=== PATIENT | female | born 1930 | race Caucasian/White ===

== ENCOUNTER 2019-08-16 13:21 | Inpatient (IN) | payer MEDICARE, BC ==
[2019-08-16] MEDS ORDERED: Sodium Chloride 0.9% 500 ML IV ONE (13:50)
--- NOTE | 2019-08-16 15:06 | EDM.PDOC ---
ED HPI GENERAL MEDICAL PROBLEM - General Chief Complaint: Syncope Stated Complaint: FALL Time Seen by Provider: 08/16/19 15:03 Source of Information: Reports: Patient, Family History Limitations: Reports: Altered Mental Status - History of Present Illness INITIAL COMMENTS - FREE TEXT/NARRATIVE: Danielle complains of weakness. She fell in the bat tub,but did not hit her head or lose conspicuousness.On further questioning,She does endorse diarrhea since yesterday.She reports feeling dizzy before falling. She has a h/o afib,recently started on Xarelto. Also has HTN on HCTZ and BB. No chest pain or SOB. No fever. - Related Data Allergies Allergy/AdvReac Type Severity Reaction Status Date / Time codeine Allergy Cannot Verified 10/27/12 15:03 Remember tramadol Allergy Cannot Verified 10/27/12 15:03 Remember Home Meds: Home Meds Acetaminophen [Tylenol Arthritis] 650 mg PO PRN 10/27/12 [History] Alendronate Sodium [Fosamax] 70 mg PO 10/27/12 [History] Calcium Carbonate/Vitamin D3 [Calcium 600 + Vit D 400] BID 10/27/12 [History] Donepezil [Aricept] 10 mg PO BEDTIME 10/27/12 [History] Lisinopril 40 mg PO DAILY 10/27/12 [History] Lomotil 2.5 mg PO QID PRN 10/27/12 [History] Metoprolol Tartrate [Lopressor] 25 mg PO DAILY 10/27/12 [History] Omeprazole [Prilosec] 20 mg PO 10/27/12 [History] Ondansetron [Zofran ODT] 4 mg PO QID PRN 10/27/12 [History] Oxybutynin Chloride [Ditropan Xl] 5 mg PO TID 10/27/12 [History] Aspirin [Halfprin] 81 mg PO DAILY 12/04/12 [History] Past Medical History - Past Health History Medical/Surgical History: Denies Medical/Surgical History - Past Surgical History Other Musculoskeletal Surgeries/Procedures:: R knee replacement Social & Family History - Living Situation & Occupation Living situation: Reports: ED ROS GENERAL - Review of Systems Review Of Systems: Comprehensive ROS is negative, except as noted in HPI. - Physical Exam Exam: See Below Exam Limited By: No Limitations General Appearance: Alert, WD/WN, No Apparent Distress Nose: Normal Inspection Throat/Mouth: Normal Inspection Head Exam: Atraumatic Neck: Normal Inspection Respiratory/Chest: No Respiratory Distress, Lungs Clear Cardiovascular: Normal Peripheral Pulses, Regular Rate, Rhythm GI/Abdominal: Soft Rectal (Female) Exam: Deferred Neuro Exam (Abbreviated): Alert Extremities: Normal Inspection Psychiatric: Normal Affect, Normal Mood Skin Exam: Warm EKG INTERPRETATION EKG Date: 08/16/19 Rhythm: NSR Course - Vital Signs Last Recorded V/S: Last Vital Signs Temp 96.2 F L 08/16/19 13:21 Pulse 66 08/16/19 13:21 Resp 18 08/16/19 13:21 BP 114/101 H 08/16/19 13:21 Pulse Ox 98 08/16/19 13:21 - Orders/Labs/Meds Orders: Active Orders 24 hr Category Date Time Status EKG Documentation Completion [RC] ASDIRECTED Care 08/16/19 13:34 Active C DIFFICILE AG/TOXIN W/REFLEX [RM] Stat Lab 08/16/19 13:35 Ordered OCCULT BLOOD DIAGNOSTIC [OP] Stat Lab 08/16/19 15:02 Ordered EKG 12 Lead [EK] Routine Ther 08/16/19 13:34 Ordered Labs: Laboratory Tests 08/16/19 08/16/19 08/16/19 Range/Units 13:30 13:30 13:30 WBC 5.2 (4.5-12.0) X10-3/uL RBC 2.76 L (3.23-5.20) x10(6)uL Hgb 8.8 L (11.5-15.5) g/dL Hct 27.2 L D (30.0-51.3) % MCV 98.5 H (80-96) fL MCH 32.1 (27.7-33.6) pg MCHC 32.6 (32.2-35.4) g/dL RDW 13.8 (11.5-15.5) % Plt Count 158 (125-369) X10(3)uL MPV 7.5 (7.4-10.4) fL Neut % (Auto) 77.4 (46-82) % Lymph % (Auto) 15.8 (13-37) % [place] % (Auto) 5.8 (4-12) % Eos % (Auto) 0 L (1.0-5.0) % Baso % (Auto) 1 (0-2) % Neut # (Auto) 4.1 (1.6-8.3) # Lymph # (Auto) 0.8 (0.6-5.0) # [place] # (Auto) 0.3 (0.0-1.3) # Eos # (Auto) 0.0 (0.0-0.8) # Baso # (Auto) 0.0 (0.0-0.2) # Sodium 138 (135-145) mmol/L Potassium 3.2 L (3.5-5.3) mmol/L Chloride 103 (100-110) mmol/L Carbon Dioxide 26 (21-32) mmol/L BUN 30 H (7-18) mg/dL Creatinine 1.2 H (0.55-1.02) mg/dL Est Cr Clr Drug Dosing 27.98 mL/min Estimated GFR (MDRD) 42 L (>60) BUN/Creatinine Ratio 25.0 H (9-20) Glucose 159 H (80-116) mg/dL Calcium 8.0 L (8.6-10.2) mg/dL Total Bilirubin 0.8 (0.1-1.3) mg/dL AST 20 (5-25) IU/L ALT 11 L (12-36) U/L Alkaline Phosphatase 101 (56-112) IU/L Troponin I 11.7 (4.0-60.3) pg/mL Total Protein 5.9 L (6.0-8.0) g/dL Albumin 2.6 L (3.2-4.6) g/dL Globulin 3.3 g/dL Albumin/Globulin Ratio 0.8 Departure - Departure Time of Disposition: 16:13 Disposition: Still A Patient 30 Clinical Impression: Vasovagal syncope - Discharge Information Referrals: Wes Andrew MD [Primary Care Provider] - Forms: ED Department Discharge Sepsis Event Note (ED) - Evaluation Sepsis Screening Result: No Definite Risk - Focused Exam Vital Signs: Vital Signs Temp Pulse Resp BP Pulse Ox 08/16/19 13:21 96.2 F L 66 18 114/101 H 98 - Problem List & Annotations (1) Pre-syncope SNOMED Code(s): 557140160 Code(s): R55 - SYNCOPE AND COLLAPSE Status: Acute Current Visit: Yes (2) Dizzy SNOMED Code(s): 037219854, 561728334 Code(s): R42 - DIZZINESS AND GIDDINESS Status: Acute Current Visit: Yes (3) Anemia SNOMED Code(s): 538877054 Code(s): D64.9 - ANEMIA, UNSPECIFIED Status: Acute Current Visit: Yes (4) Afib SNOMED Code(s): 80051612 Code(s): I48.91 - UNSPECIFIED ATRIAL FIBRILLATION Status: Acute Current Visit: Yes Qualifiers: Atrial fibrillation type: paroxysmal Qualified Code(s): I48.0 - Paroxysmal atrial fibrillation (5) Diarrhea SNOMED Code(s): 73874454 Code(s): R19.7 - DIARRHEA, UNSPECIFIED Status: Acute Current Visit: Yes - Problem List Review Problem List Initiated/Reviewed/Updated: Yes - My Orders Last 24 Hours: My Active Orders 08/16/19 13:34 EKG Documentation Completion [RC] ASDIRECTED EKG 12 Lead [EK] Routine 08/16/19 13:35 C DIFFICILE AG/TOXIN W/REFLEX [RM] Stat 08/16/19 15:02 OCCULT BLOOD DIAGNOSTIC [OP] Stat - Assessment/Plan Last 24 Hours: My Active Orders 08/16/19 13:34 EKG Documentation Completion [RC] ASDIRECTED EKG 12 Lead [EK] Routine 08/16/19 13:35 C DIFFICILE AG/TOXIN W/REFLEX [RM] Stat 08/16/19 15:02 OCCULT BLOOD DIAGNOSTIC [OP] Stat Plan: Her orthostatrics are very suggestive. I will admit her.
[2019-08-16] MEDS: Sodium Chloride 0.9% 10 ML Syringe FLUSH PRN ×2 (18:00→23:24)
[2019-08-16] MEDS: Sodium Chloride 0.9% 1,000 ML IV SCH (18:05)
[2019-08-16] MEDS: Sodium Chloride 0.9% 250 ML IV SCH (23:24)
[2019-08-17] MEDS: Sodium Chloride 0.9% 250 ML IV SCH ×2 (02:56→20:38)
--- NOTE | 2019-08-17 06:55 | PCM.HP.2 ---
H&P History of Present Illness - General Date of Service: 08/17/19 Admit Problem/Dx: Admission Diagnosis/Problem Admission Diagnosis/Problem Syncope Source of Information: Patient History Limitations: Reports: No Limitations - History of Present Illness Initial Comments - Free Text/Narative: Danielle was came in yesterday through the ER, and admitted because of syncope, orthostasis, and a GI bleed. She had fallen at home while in the bathroom because of dizziness. She also had bright red blood per rectum. No abdominal pain,fever chills. Recently she was started on Xarelto for atrial fibrillation. - Related Data Allergies/Adverse Reactions: Allergies Allergy/AdvReac Type Severity Reaction Status Date / Time codeine Allergy Nausea Verified 08/16/19 18:32 tramadol Allergy Nausea Verified 08/16/19 18:32 Home Medications: Home Meds Donepezil [Aricept] 10 mg PO BEDTIME 10/27/12 [History] Metoprolol Tartrate [Lopressor] 50 mg PO DAILY 10/27/12 [History] Oxybutynin Chloride [Ditropan Xl] 5 mg PO DAILY 10/27/12 [History] Rivaroxaban [Xarelto] 20 mg PO BEDTIME 08/16/19 [History] hydroCHLOROthiazide [Hydrochlorothiazide] 25 mg PO DAILY 08/16/19 [History] Past Medical History - Past Health History Medical/Surgical History: Denies Medical/Surgical History Cardiovascular History: Reports: Afib, Hypertension Gastrointestinal History: Reports: Diverticulosis, Other (See Below) Other Gastrointestinal History: diverticulitis Genitourinary History: Reports: Urinary Incontinence, UTI, Recurrent Other Genitourinary History: occ dribbling 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/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 History: Musculoskeletal History: Reports: Arthritis, Fracture Other Musculoskeletal History: hx R wrist, R clavicle Neurological History: Reports: Concussion Psychiatric History: Reports: Dementia Other Psychiatric History: early dementia, is forgetful Endocrine/Metabolic History: Reports: Obesity/BMI 30+ - Infectious Disease History Infectious Disease History: Reports: Chicken Pox - Past Surgical History Head Surgeries/Procedures: Reports: None HEENT Surgical History: Reports: Adenoidectomy, Cataract Surgery, Tonsillectomy Other HEENT Surgeries/Procedures: bilat cataract surgery GI Surgical History: Reports: Colon, Colonoscopy Female Surgical History: Reports: Hysterectomy Musculoskeletal Surgical History: Reports: Knee Replacement, Other (See Below) Other Musculoskeletal Surgeries/Procedures:: surgery post arm fracture Social & Family History - Family History Family Medical History: Noncontributory - Tobacco Use Smoking Status *Q: Never Smoker Second Hand Smoke Exposure: No - Caffeine Use Caffeine Use: Reports: Coffee, Soda - Recreational Drug Use Recreational Drug Use: No - Living Situation & Occupation Living situation: Reports: H&P Review of Systems - Review of Systems: Review Of Systems: Comprehensive ROS is negative, except as noted in HPI. Exam - Exam Exam: See Below - Vital Signs Vital Signs: Last Vital Signs Temp 97.9 F 08/17/19 03:04 Pulse 81 08/17/19 03:04 Resp 16 08/17/19 03:04 BP 130/81 08/17/19 03:04 Pulse Ox 99 08/17/19 03:04 Orthostatic Blood Pressure [ 82/68 Sitting] Orthostatic Blood Pressure [ 122/108 Supine] Weight: 75.251 kg - Exam General: Alert, Cooperative. No: Oriented HEENT: PERRLA, Conjunctiva Clear Neck: Supple, Trachea Midline, 2 Lungs: Clear to Auscultation, Normal Respiratory Effort Cardiovascular: Irregular Rhythm GI/Abdominal Exam: Normal Bowel Sounds, Soft, Non-Tender, No Organomegaly, No Distention, No Abnormal Bruit, No Mass, Pelvis Stable (Female) Exam: Deferred Rectal (Female) Exam: Bloody Stool Back Exam: Normal Inspection, Full Range of Motion, NT Extremities: Normal Inspection, Normal Range of Motion, Non-Tender, No Pedal Edema, Normal Capillary Refill Skin: Warm, Dry, Intact Neurological: Cranial Nerves Intact, Reflexes Equal Bilateral Neuro Extensive - Mental Status: Alert, Oriented x3, Normal Mood/Affect, Normal Cognition Neuro Extensive - Motor, Sensory, Reflexes: CN II-XII Intact, Normal Gait, Normal Reflexes Psychiatric: Alert, Normal Affect, Normal Mood - Patient Data Lab Results Last 24 hrs: Laboratory Results - last 24 hr 08/16/19 08/16/19 08/16/19 Range/Units 13:30 13:30 13:30 WBC 5.2 (4.5-12.0) X10-3/uL RBC 2.76 L (3.23-5.20) x10(6)uL Hgb 8.8 L (11.5-15.5) g/dL Hct 27.2 L D (30.0-51.3) % MCV 98.5 H (80-96) fL MCH 32.1 (27.7-33.6) pg MCHC 32.6 (32.2-35.4) g/dL RDW 13.8 (11.5-15.5) % Plt Count 158 (125-369) X10(3)uL MPV 7.5 (7.4-10.4) fL Neut % (Auto) 77.4 (46-82) % Lymph % (Auto) 15.8 (13-37) % [place] % (Auto) 5.8 (4-12) % Eos % (Auto) 0 L (1.0-5.0) % Baso % (Auto) 1 (0-2) % Neut # (Auto) 4.1 (1.6-8.3) # Lymph # (Auto) 0.8 (0.6-5.0) # [place] # (Auto) 0.3 (0.0-1.3) # Eos # (Auto) 0.0 (0.0-0.8) # Baso # (Auto) 0.0 (0.0-0.2) # Sodium 138 (135-145) mmol/L Potassium 3.2 L (3.5-5.3) mmol/L Chloride 103 (100-110) mmol/L Carbon Dioxide 26 (21-32) mmol/L BUN 30 H (7-18) mg/dL Creatinine 1.2 H (0.55-1.02) mg/dL Est Cr Clr Drug Dosing 27.98 mL/min Estimated GFR (MDRD) 42 L (>60) BUN/Creatinine Ratio 25.0 H (9-20) Glucose 159 H (80-116) mg/dL Calcium 8.0 L (8.6-10.2) mg/dL Total Bilirubin 0.8 (0.1-1.3) mg/dL AST 20 (5-25) IU/L ALT 11 L (12-36) U/L Alkaline Phosphatase 101 (56-112) IU/L Troponin I 11.7 (4.0-60.3) pg/mL Total Protein 5.9 L (6.0-8.0) g/dL Albumin 2.6 L (3.2-4.6) g/dL Globulin 3.3 g/dL Albumin/Globulin Ratio 0.8 SARS Virus RNA (PCR) (NEGATIVE) Blood Type Gel Antibody Screen Crossmatch 08/16/19 08/16/19 08/16/19 Range/Units 13:30 16:45 20:40 WBC 7.6 (4.5-12.0) X10-3/uL RBC 2.56 L (3.23-5.20) x10(6)uL Hgb 8.3 L (11.5-15.5) g/dL Hct 25.2 L (30.0-51.3) % MCV 98.4 H (80-96) fL MCH 32.6 (27.7-33.6) pg MCHC 33.1 (32.2-35.4) g/dL RDW 13.8 (11.5-15.5) % Plt Count 155 (125-369) X10(3)uL MPV 7.5 (7.4-10.4) fL Neut % (Auto) 75.3 (46-82) % Lymph % (Auto) 17.8 (13-37) % [place] % (Auto) 6.5 (4-12) % Eos % (Auto) 0 L (1.0-5.0) % Baso % (Auto) 0 (0-2) % Neut # (Auto) 5.7 (1.6-8.3) # Lymph # (Auto) 1.4 (0.6-5.0) # [place] # (Auto) 0.5 (0.0-1.3) # Eos # (Auto) 0.0 (0.0-0.8) # Baso # (Auto) 0.0 (0.0-0.2) # Sodium (135-145) mmol/L Potassium (3.5-5.3) mmol/L Chloride (100-110) mmol/L Carbon Dioxide (21-32) mmol/L BUN (7-18) mg/dL Creatinine (0.55-1.02) mg/dL Est Cr Clr Drug Dosing mL/min Estimated GFR (MDRD) (>60) BUN/Creatinine Ratio (9-20) Glucose (80-116) mg/dL Calcium (8.6-10.2) mg/dL Total Bilirubin (0.1-1.3) mg/dL AST (5-25) IU/L ALT (12-36) U/L Alkaline Phosphatase (56-112) IU/L Troponin I (4.0-60.3) pg/mL Total Protein (6.0-8.0) g/dL Albumin (3.2-4.6) g/dL Globulin g/dL Albumin/Globulin Ratio SARS Virus RNA (PCR) Negative (NEGATIVE) Blood Type A POSITIVE Gel Antibody Screen Negative Crossmatch See Detail Result Diagrams: 08/16/19 20:40 08/16/19 13:30 Johnnie Results Last 24 hrs: Microbiology 08/16/19 18:30 Stool Occult Blood (JOHNNIE) - Final Stool / Feces EKG INTERPRETATION Rhythm: A-Fib Sepsis Event Note - Evaluation Sepsis Screening Result: No Definite Risk - Focused Exam Vital Signs: Vital Signs Temp Temp Pulse Resp BP Pulse Ox 08/17/19 03:04 97.9 F 81 16 130/81 99 08/17/19 02:49 97.8 F 85 14 134/70 99 08/17/19 01:15 97.9 F 89 20 109/63 99 08/16/19 23:40 97.8 F 85 14 104/60 08/16/19 23:25 98 F 98 F 84 20 106/51 L 98 08/16/19 21:25 98.2 F 84 20 109/74 97 08/16/19 20:15 97.9 F 78 18 96/51 L 95 Date Exam was Performed: 08/17/19 Time Exam was Performed: 06:49 - Problem List (1) BRBPR (bright red blood per rectum) SNOMED Code(s): 64725521 ICD Code: K62.5 - HEMORRHAGE OF ANUS AND RECTUM Status: Acute Current Visit: Yes (2) Pre-syncope SNOMED Code(s): 388183695 ICD Code: R55 - SYNCOPE AND COLLAPSE Status: Acute Current Visit: Yes (3) Dizzy SNOMED Code(s): 942920387, 142463975 ICD Code: R42 - DIZZINESS AND GIDDINESS Status: Acute Current Visit: Yes (4) Anemia SNOMED Code(s): 251389043 ICD Code: D64.9 - ANEMIA, UNSPECIFIED Status: Acute Current Visit: Yes (5) Afib SNOMED Code(s): 20457512 ICD Code: I48.91 - UNSPECIFIED ATRIAL FIBRILLATION Status: Acute Current Visit: Yes Qualifiers: Atrial fibrillation type: paroxysmal Qualified Code(s): I48.0 - Paroxysmal atrial fibrillation (6) Diarrhea SNOMED Code(s): 99938199 ICD Code: R19.7 - DIARRHEA, UNSPECIFIED Status: Acute Current Visit: Yes Problem List Initiated/Reviewed/Updated: Yes Orders Last 24hrs: Active Orders 24 hr Category Date Time Status Patient Status [ADT] Routine ADT 08/16/19 16:21 Active EKG Documentation Completion [RC] ASDIRECTED Care 08/16/19 13:34 Active Height and Weight [RC] 06 Care 08/16/19 16:21 Active Intake and Output [RC] 06,14,22 Care 08/16/19 16:22 Active Oxygen Therapy [RC] PRN Care 08/16/19 16:21 Active Telemetry Monitoring [Cardiac Monitoring] [RC] .As Care 08/16/19 17:15 Active Directed Up With Assistance [RC] ASDIRECTED Care 08/16/19 16:21 Active VTE/DVT Education [RC] Per Unit Routine Care 08/16/19 16:21 Active Vital Signs [RC] QSHIFT Care 08/16/19 16:21 Active OT Evaluation and Treatment [CONS] Routine Cons 08/16/19 16:21 Active PT Evaluation and Treatment [CONS] Routine Cons 08/16/19 16:21 Active Regular Diet [DIET] Diet 08/16/19 Breakfast Active CBC WITH AUTO DIFF [HEME] AM Lab 08/17/19 05:11 Ordered COMPREHENSIVE METABOLIC PN,CMP [CHEM] AM Lab 08/17/19 05:11 Ordered Donepezil [Aricept] Med 08/17/19 21:00 Active 10 mg PO BEDTIME Sodium Chloride 0.9% [Normal Saline] 1,000 ml Med 08/16/19 16:30 Active IV ASDIRECTED Sodium Chloride 0.9% [Normal Saline] 250 ml Med 08/16/19 22:00 Active IV ASDIRECTED Sodium Chloride 0.9% [Saline Flush] Med 08/16/19 18:25 Active 10 ml FLUSH ASDIRECTED PRN Transfuse PRBC [Transfuse Red Blood Cells] [COMM] Stat Oth 08/16/19 21:46 Ordered Resuscitation Status Routine Resus Stat 08/16/19 16:21 Ordered EKG 12 Lead [EK] Routine Ther 08/16/19 13:34 Ordered Medication Orders Donepezil HCl (Aricept) 10 mg PO BEDTIME [facility] Sodium Chloride (Normal Saline) 1,000 mls @ 125 mls/hr IV ASDIRECTED FARIHA Last Admin: 08/16/19 18:05 Dose: 125 mls/hr Documented by: SRUTHI Sodium Chloride (Normal Saline) 250 mls @ 100 mls/hr IV ASDIRECTED [facility] Last Admin: 08/17/19 02:56 Dose: 100 mls/hr Documented by: Admin: 08/16/19 23:24 Dose: 100 mls/hr Documented by: ENEDELIA Sodium Chloride (Saline Flush) 10 ml FLUSH ASDIRECTED PRN PRN Reason: Keep Vein Open Last Admin: 08/16/19 23:24 Dose: 10 ml Documented by: Admin: 08/16/19 18:00 Dose: 10 ml Documented by: SRUTHI Assessment/Plan Comment:: Overnight, that he had some bloody stools, hemoglobin dropping to 8.3. Her blood pressure was low and had one episode of passing out. I given 2 units of PRBCs. She feels better this morning. We'll continue with fluid resuscitation and repeat labs tomorrow
[2019-08-17] MEDS ORDERED: Pantoprazole 40 MG Vial IVPUSH ONE (09:17)
[2019-08-17] MEDS: Sodium Chloride 0.9% 1,000 ML IV SCH (09:45)
[2019-08-17] MEDS ORDERED: Potassium Chloride 20 MEQ in Premix Bag 1 BAG IV ONE (10:12)
--- NOTE | 2019-08-17 10:21 | PCM.CONS ---
H&P History of Present Illness - General Date of Service: 08/17/19 Admit Problem/Dx: Admission Diagnosis/Problem Admission Diagnosis/Problem Syncope - History of Present Illness Initial Comments - Free Text/Narative: 88 yo wf who was admitted yesterday after an episode of syncope. She apparently has been having some diarrhea prior to here presentation. During her hospitalization she was noted to have an episode bloody bowel movements. This was repeated last evening and this morning. This am it was erickson blood. The patient did receive two units of blood last pm. She is on Xeralto for recently diagnosed Afib. This was stopped yesterday per the hospitalist. She has a hx of diverticulosis. No c scope report is available. She is also a poor historian. - Related Data Allergies/Adverse Reactions: Allergies Allergy/AdvReac Type Severity Reaction Status Date / Time codeine Allergy Nausea Verified 08/16/19 18:32 tramadol Allergy Nausea Verified 08/16/19 18:32 Home Medications: Home Meds Donepezil [Aricept] 10 mg PO BEDTIME 10/27/12 [History] Metoprolol Tartrate [Lopressor] 50 mg PO DAILY 10/27/12 [History] Oxybutynin Chloride [Ditropan Xl] 5 mg PO DAILY 10/27/12 [History] Rivaroxaban [Xarelto] 20 mg PO BEDTIME 08/16/19 [History] hydroCHLOROthiazide [Hydrochlorothiazide] 25 mg PO DAILY 08/16/19 [History] Past Medical History - Past Health History Medical/Surgical History: Denies Medical/Surgical History Cardiovascular History: Reports: Afib, Hypertension Gastrointestinal History: Reports: Diverticulosis, Other (See Below) Other Gastrointestinal History: diverticulitis Genitourinary History: Reports: Urinary Incontinence, UTI, Recurrent Other Genitourinary History: occ dribbling [employer] History: Reports: Other OB/BYN History: Musculoskeletal History: Reports: Arthritis, Fracture Other Musculoskeletal History: hx R wrist, R clavicle Neurological History: Reports: Concussion Psychiatric History: Reports: Dementia Other Psychiatric History: early dementia, is forgetful Endocrine/Metabolic History: Reports: Obesity/BMI 30+ - Infectious Disease History Infectious Disease History: Reports: Chicken Pox - Past Surgical History Head Surgeries/Procedures: Reports: None HEENT Surgical History: Reports: Adenoidectomy, Cataract Surgery, Tonsillectomy Other HEENT Surgeries/Procedures: bilat cataract surgery GI Surgical History: Reports: Colon, Colonoscopy Female Surgical History: Reports: Hysterectomy Musculoskeletal Surgical History: Reports: Knee Replacement, Other (See Below) Other Musculoskeletal Surgeries/Procedures:: surgery post arm fracture Social & Family History - Family History Family Medical History: Noncontributory - Tobacco Use Smoking Status *Q: Never Smoker Second Hand Smoke Exposure: No - Caffeine Use Caffeine Use: Reports: Coffee, Soda - Recreational Drug Use Recreational Drug Use: No - Living Situation & Occupation Living situation: Reports: H&P Review of Systems - Review of Systems: Review Of Systems: See Below General: Reports: No Symptoms Pulmonary: Reports: No Symptoms Cardiovascular: Reports: No Symptoms Gastrointestinal: Reports: Bloody Stool. Denies: Abdominal Pain Exam - Exam Exam: See Below - Vital Signs Vital Signs: Last Vital Signs Temp 97.1 F 08/17/19 09:13 Pulse 117 H 08/17/19 09:13 Resp 18 08/17/19 09:13 BP 106/68 08/17/19 09:13 Pulse Ox 97 08/17/19 09:13 Orthostatic Blood Pressure [ 82/68 Sitting] Orthostatic Blood Pressure [ 122/108 Supine] Weight: 75.251 kg - Exam General: Alert, Cooperative. No: Mild Distress Lungs: Clear to Auscultation, Normal Respiratory Effort Cardiovascular: Irregular Rhythm GI/Abdominal Exam: Normal Bowel Sounds, Soft, Non-Tender Back Exam: Normal Inspection Skin: Warm, Dry, Intact - Patient Data Lab Results Last 24 hrs: Laboratory Results - last 24 hr 08/16/19 08/16/19 08/16/19 Range/Units 13:30 13:30 13:30 WBC 5.2 (4.5-12.0) X10-3/uL RBC 2.76 L (3.23-5.20) x10(6)uL Hgb 8.8 L (11.5-15.5) g/dL Hct 27.2 L D (30.0-51.3) % MCV 98.5 H (80-96) fL MCH 32.1 (27.7-33.6) pg MCHC 32.6 (32.2-35.4) g/dL RDW 13.8 (11.5-15.5) % Plt Count 158 (125-369) X10(3)uL MPV 7.5 (7.4-10.4) fL Neut % (Auto) 77.4 (46-82) % Lymph % (Auto) 15.8 (13-37) % [place] % (Auto) 5.8 (4-12) % Eos % (Auto) 0 L (1.0-5.0) % Baso % (Auto) 1 (0-2) % Neut # (Auto) 4.1 (1.6-8.3) # Lymph # (Auto) 0.8 (0.6-5.0) # [place] # (Auto) 0.3 (0.0-1.3) # Eos # (Auto) 0.0 (0.0-0.8) # Baso # (Auto) 0.0 (0.0-0.2) # Sodium 138 (135-145) mmol/L Potassium 3.2 L (3.5-5.3) mmol/L Chloride 103 (100-110) mmol/L Carbon Dioxide 26 (21-32) mmol/L BUN 30 H (7-18) mg/dL Creatinine 1.2 H (0.55-1.02) mg/dL Est Cr Clr Drug Dosing 27.98 mL/min Estimated GFR (MDRD) 42 L (>60) BUN/Creatinine Ratio 25.0 H (9-20) Glucose 159 H (80-116) mg/dL Calcium 8.0 L (8.6-10.2) mg/dL Total Bilirubin 0.8 (0.1-1.3) mg/dL AST 20 (5-25) IU/L ALT 11 L (12-36) U/L Alkaline Phosphatase 101 (56-112) IU/L Troponin I 11.7 (4.0-60.3) pg/mL Total Protein 5.9 L (6.0-8.0) g/dL Albumin 2.6 L (3.2-4.6) g/dL Globulin 3.3 g/dL Albumin/Globulin Ratio 0.8 SARS Virus RNA (PCR) (NEGATIVE) Blood Type Gel Antibody Screen Crossmatch 08/16/19 08/16/19 08/16/19 Range/Units 13:30 16:45 20:40 WBC 7.6 (4.5-12.0) X10-3/uL RBC 2.56 L (3.23-5.20) x10(6)uL Hgb 8.3 L (11.5-15.5) g/dL Hct 25.2 L (30.0-51.3) % MCV 98.4 H (80-96) fL MCH 32.6 (27.7-33.6) pg MCHC 33.1 (32.2-35.4) g/dL RDW 13.8 (11.5-15.5) % Plt Count 155 (125-369) X10(3)uL MPV 7.5 (7.4-10.4) fL Neut % (Auto) 75.3 (46-82) % Lymph % (Auto) 17.8 (13-37) % [place] % (Auto) 6.5 (4-12) % Eos % (Auto) 0 L (1.0-5.0) % Baso % (Auto) 0 (0-2) % Neut # (Auto) 5.7 (1.6-8.3) # Lymph # (Auto) 1.4 (0.6-5.0) # [place] # (Auto) 0.5 (0.0-1.3) # Eos # (Auto) 0.0 (0.0-0.8) # Baso # (Auto) 0.0 (0.0-0.2) # Sodium (135-145) mmol/L Potassium (3.5-5.3) mmol/L Chloride (100-110) mmol/L Carbon Dioxide (21-32) mmol/L BUN (7-18) mg/dL Creatinine (0.55-1.02) mg/dL Est Cr Clr Drug Dosing mL/min Estimated GFR (MDRD) (>60) BUN/Creatinine Ratio (9-20) Glucose (80-116) mg/dL Calcium (8.6-10.2) mg/dL Total Bilirubin (0.1-1.3) mg/dL AST (5-25) IU/L ALT (12-36) U/L Alkaline Phosphatase (56-112) IU/L Troponin I (4.0-60.3) pg/mL Total Protein (6.0-8.0) g/dL Albumin (3.2-4.6) g/dL Globulin g/dL Albumin/Globulin Ratio SARS Virus RNA (PCR) Negative (NEGATIVE) Blood Type A POSITIVE Gel Antibody Screen Negative Crossmatch See Detail 08/17/19 08/17/19 Range/Units 06:15 06:15 WBC 6.4 (4.5-12.0) X10-3/uL RBC 3.10 L (3.23-5.20) x10(6)uL Hgb 9.6 L (11.5-15.5) g/dL Hct 28.9 L (30.0-51.3) % MCV 93.2 (80-96) fL MCH 30.8 (27.7-33.6) pg MCHC 33.1 (32.2-35.4) g/dL RDW 16.1 H (11.5-15.5) % Plt Count 122 L (125-369) X10(3)uL MPV 7.7 (7.4-10.4) fL Neut % (Auto) 61.9 (46-82) % Lymph % (Auto) 28.6 (13-37) % [place] % (Auto) 8.4 (4-12) % Eos % (Auto) 1 (1.0-5.0) % Baso % (Auto) 1 (0-2) % Neut # (Auto) 4.1 (1.6-8.3) # Lymph # (Auto) 1.8 (0.6-5.0) # [place] # (Auto) 0.5 (0.0-1.3) # Eos # (Auto) 0.0 (0.0-0.8) # Baso # (Auto) 0.0 (0.0-0.2) # Sodium 140 (135-145) mmol/L Potassium 3.1 L (3.5-5.3) mmol/L Chloride 107 (100-110) mmol/L Carbon Dioxide 27 (21-32) mmol/L BUN 24 H (7-18) mg/dL Creatinine 0.9 (0.55-1.02) mg/dL Est Cr Clr Drug Dosing 37.31 mL/min Estimated GFR (MDRD) 59 L (>60) BUN/Creatinine Ratio 26.7 H (9-20) Glucose 108 (80-116) mg/dL Calcium 7.5 L (8.6-10.2) mg/dL Total Bilirubin 0.9 (0.1-1.3) mg/dL AST 17 D (5-25) IU/L ALT 12 (12-36) U/L Alkaline Phosphatase 83 (56-112) IU/L Troponin I (4.0-60.3) pg/mL Total Protein 5.1 L (6.0-8.0) g/dL Albumin 2.3 L (3.2-4.6) g/dL Globulin 2.8 g/dL Albumin/Globulin Ratio 0.8 SARS Virus RNA (PCR) (NEGATIVE) Blood Type Gel Antibody Screen Crossmatch Result Diagrams: 08/17/19 06:15 08/17/19 06:15 Johnnie Results Last 24 hrs: Microbiology 08/16/19 18:30 Stool Occult Blood (JOHNNIE) - Final Stool / Feces Sepsis Event Note - Evaluation Sepsis Screening Result: No Definite Risk - Focused Exam Vital Signs: Vital Signs Temp Temp Pulse Resp BP Pulse Ox 08/17/19 09:13 97.1 F 117 H 18 106/68 97 08/17/19 08:00 98.1 F 94 16 129/73 98 08/17/19 05:15 98.2 F 75 16 125/55 L 99 08/17/19 03:04 97.9 F 81 16 130/81 99 08/17/19 02:49 97.8 F 85 14 134/70 99 08/17/19 01:15 97.9 F 89 20 109/63 99 08/16/19 23:40 97.8 F 85 14 104/60 08/16/19 23:25 98 F 98 F 84 20 106/51 L 98 Date Exam was Performed: 08/17/19 Time Exam was Performed: 10:15 *Q Meaningful Use (ADM) - VTE *Q VTE Pharmacological Contraindications *Q: Active Hemorrhage Consult PN Assessment/Plan Procedures: Procedures APPLY FOREARM SPLINT (11/01/14) COMPLETE CBC W/AUTO DIFF WBC (10/27/12) EMERGENCY DEPT VISIT (11/01/14) EMERGENCY DEPT VISIT (10/27/12) METABOLIC PANEL TOTAL CA (10/27/12) ROUTINE VENIPUNCTURE (10/27/12) THER/PROPH/DIAG INJ IV PUSH (10/27/12) X-RAY EXAM COMPLETE ABDOMEN (10/27/12) X-RAY EXAM OF WRIST (11/01/14) XCAPSL CTRC RMVL W/O ECP (12/04/12) (1) Hypokalemia SNOMED Code(s): 91829927 Code(s): E87.6 - HYPOKALEMIA Current Visit: Yes (2) BRBPR (bright red blood per rectum) SNOMED Code(s): 39357486 Code(s): K62.5 - HEMORRHAGE OF ANUS AND RECTUM Current Visit: Yes Assessment:: At this point it appears that this may be a diverticular bleed, which has been exacerbated by Xeralto use for her afib. (3) History of diverticulosis SNOMED Code(s): 011878142 Code(s): Z87.19 - PERSONAL HISTORY OF OTHER DISEASES OF THE DIGESTIVE SYSTEM Current Visit: Yes Problem List Initiated/Reviewed/Updated: Yes My Orders Last 24 Hours: My Active Orders 08/17/19 10:10 INR,PT,PROTHROMBIN TIME [COAG] Routine Plan: Do not believe she needs to be reversed at this time, but can be watched and supported. Transfused as necessary. If we do not have the reversal agent available and the bleeding persists will need to consider transfer. Would check a PT INR just for completeness. Would change to DN1/2 NS with KCl and give a bolus.
[2019-08-17] MEDS: D5 1/2 NS w/ 20 mEq/L KCl 1,000 ML IV SCH (10:51)
[2019-08-17] MEDS ORDERED: Levofloxacin/Dextrose 5%-Water 500 MG in Premix Bag 1 BAG IV SCH (18:00)
[2019-08-17] MEDS ORDERED: Diltiazem IR 60 MG Tab PO ONE (19:23)
[2019-08-17] MEDS ORDERED: Diltiazem IR 30 MG Tab PO ONE (20:30)
[2019-08-17] MEDS: Sodium Chloride 0.9% 10 ML Syringe FLUSH PRN (20:38)
[2019-08-17] MEDS: Donepezil 10 MG Tab PO SCH (20:48)
[2019-08-18] MEDS: D5 1/2 NS w/ 20 mEq/L KCl 1,000 ML IV SCH ×3 (00:35→17:45)
[2019-08-18] MEDS ORDERED: Sodium Chloride 0.9% 250 ML IV SCH (08:45)
[2019-08-18] MEDS ORDERED: Polyethylene Glycol 3350 Powder 238 GM Bot PO ONE (08:48)
--- NOTE | 2019-08-18 08:55 | PCM.CONSN ---
- General Info Date of Service: 08/18/19 Functional Status: Reports: Other (continued to pass some blood ) - Patient Data Vitals - Most Recent: Last Vital Signs Temp 98.1 F 08/17/19 23:00 Pulse 84 08/18/19 03:00 Resp 20 08/18/19 03:00 BP 109/66 08/18/19 03:00 Pulse Ox 97 08/18/19 03:00 Orthostatic Blood Pressure [ 82/68 Sitting] Orthostatic Blood Pressure [ 122/108 Supine] Weight - Most Recent: 75.886 kg I&O - Last 24 Hours: Intake & Output 08/17/19 08/18/19 08/18/19 22:59 06:59 14:59 Intake Total 0 919 Output Total 1200 200 Balance -1200 719 Lab Results Last 24 Hours: Laboratory Results - last 24 hr 08/16/19 08/17/19 08/17/19 Range/Units 13:30 12:10 12:10 WBC 8.4 (4.5-12.0) X10-3/uL RBC 3.07 L (3.23-5.20) x10(6)uL Hgb 9.4 L (11.5-15.5) g/dL Hct 29.1 L (30.0-51.3) % MCV 94.9 (80-96) fL MCH 30.7 (27.7-33.6) pg MCHC 32.3 (32.2-35.4) g/dL RDW 16.6 H (11.5-15.5) % Plt Count 135 (125-369) X10(3)uL MPV 7.5 (7.4-10.4) fL Neut % (Auto) 69.2 (46-82) % Lymph % (Auto) 22.6 (13-37) % [place] % (Auto) 7.3 (4-12) % Eos % (Auto) 0 L (1.0-5.0) % Baso % (Auto) 1 (0-2) % Neut # (Auto) 5.8 (1.6-8.3) # Lymph # (Auto) 1.9 (0.6-5.0) # [place] # (Auto) 0.6 (0.0-1.3) # Eos # (Auto) 0.0 (0.0-0.8) # Baso # (Auto) 0.1 (0.0-0.2) # PT 13.7 H (9.0-11.1) sec INR 1.29 H (1.00-1.24) Sodium (135-145) mmol/L Potassium (3.5-5.3) mmol/L Chloride (100-110) mmol/L Carbon Dioxide (21-32) mmol/L BUN (7-18) mg/dL Creatinine (0.55-1.02) mg/dL Est Cr Clr Drug Dosing mL/min Estimated GFR (MDRD) (>60) BUN/Creatinine Ratio (9-20) Glucose (80-116) mg/dL Calcium (8.6-10.2) mg/dL Urine Color (YELLOW) Urine Appearance (CLEAR) Urine pH (5.0-6.5) Ur Specific [place] (1.010-1.025) Urine Protein (NEGATIVE) mg/dL Urine Glucose (UA) (NORMAL) mg/dL Urine Ketones (NEGATIVE) mg/dL Urine Occult Blood (NEGATIVE) Urine Nitrite (NEGATIVE) Urine Bilirubin (NEGATIVE) Urine Urobilinogen (NEGATIVE) mg/dL Ur Leukocyte Esterase (NEGATIVE) Urine RBC (0-5) Urine WBC (0-5) Ur Squamous Epith Cells (NS,R,O) Urine Bacteria (NS) Blood Type A POSITIVE Gel Antibody Screen Negative Crossmatch See Detail 08/17/19 08/18/19 08/18/19 Range/Units 17:25 06:15 06:15 WBC 8.3 (4.5-12.0) X10-3/uL RBC 3.02 L (3.23-5.20) x10(6)uL Hgb 9.2 L (11.5-15.5) g/dL Hct 28.3 L (30.0-51.3) % MCV 93.9 (80-96) fL MCH 30.4 (27.7-33.6) pg MCHC 32.4 (32.2-35.4) g/dL RDW 15.2 (11.5-15.5) % Plt Count 124 L (125-369) X10(3)uL MPV 7.5 (7.4-10.4) fL Neut % (Auto) 71.6 (46-82) % Lymph % (Auto) 19.5 (13-37) % [place] % (Auto) 8.0 (4-12) % Eos % (Auto) 1 (1.0-5.0) % Baso % (Auto) 0 (0-2) % Neut # (Auto) 6.0 (1.6-8.3) # Lymph # (Auto) 1.6 (0.6-5.0) # [place] # (Auto) 0.7 (0.0-1.3) # Eos # (Auto) 0.0 (0.0-0.8) # Baso # (Auto) 0.0 (0.0-0.2) # PT (9.0-11.1) sec INR (1.00-1.24) Sodium 139 (135-145) mmol/L Potassium 3.8 (3.5-5.3) mmol/L Chloride 107 (100-110) mmol/L Carbon Dioxide 24 (21-32) mmol/L BUN 21 H (7-18) mg/dL Creatinine 0.9 (0.55-1.02) mg/dL Est Cr Clr Drug Dosing 37.31 mL/min Estimated GFR (MDRD) 59 L (>60) BUN/Creatinine Ratio 23.3 H (9-20) Glucose 162 H (80-116) mg/dL Calcium 7.3 L (8.6-10.2) mg/dL Urine Color Yellow (YELLOW) Urine Appearance Cloudy (CLEAR) Urine pH 7.0 H (5.0-6.5) Ur Specific [place] 1.005 L (1.010-1.025) Urine Protein 30 H (NEGATIVE) mg/dL Urine Glucose (UA) Normal (NORMAL) mg/dL Urine Ketones Negative (NEGATIVE) mg/dL Urine Occult Blood Large H (NEGATIVE) Urine Nitrite Negative (NEGATIVE) Urine Bilirubin Negative (NEGATIVE) Urine Urobilinogen Normal (NEGATIVE) mg/dL Ur Leukocyte Esterase Large H (NEGATIVE) Urine RBC >100 H (0-5) Urine WBC >100 H (0-5) Ur Squamous Epith Cells Few H (NS,R,O) Urine Bacteria Many H (NS) Blood Type Gel Antibody Screen Crossmatch Med Orders - Current: Current Medications Donepezil HCl (Aricept) 10 mg PO BEDTIME [facility] Last Admin: 08/17/19 20:48 Dose: 10 mg Documented by: Sodium Chloride (Normal Saline) 250 mls @ 100 mls/hr IV ASDIRECTED [facility] Last Admin: 08/17/19 20:38 Dose: 100 mls/hr Documented by: Potassium Chloride/Dextrose/Sod Cl (D5 1/2 Ns W/ 20 Meq/L Kcl) 1,000 mls @ 125 mls/hr IV ASDIRECTED [facility] Last Admin: 08/18/19 00:35 Dose: 125 mls/hr Documented by: Levofloxacin/Dextrose 500 mg/ (Premix) 100 mls @ 100 mls/hr IV Q24H [facility] Last Admin: 08/17/19 18:07 Dose: 100 mls/hr Documented by: Sodium Chloride (Saline Flush) 10 ml FLUSH ASDIRECTED PRN PRN Reason: Keep Vein Open Last Admin: 08/17/19 20:38 Dose: 10 ml Documented by: Discontinued Medications Diltiazem HCl (Cardizem) 120 mg PO ONETIME ONE Stop: 08/17/19 19:24 Last Admin: 08/17/19 20:48 Dose: Not Given Documented by: Diltiazem HCl (Cardizem) 120 mg PO ONETIME ONE Stop: 08/17/19 20:31 Last Admin: 08/17/19 20:49 Dose: 120 mg Documented by: Sodium Chloride (Normal Saline) 1,000 mls @ 125 mls/hr IV ASDIRECTED [facility] Last Admin: 08/17/19 09:45 Dose: 125 mls/hr Documented by: Sodium Chloride (Normal Saline) 500 mls @ 999 mls/hr IV .BOLUS ONE Stop: 08/16/19 14:20 Last Admin: 08/16/19 13:50 Dose: 999 mls/hr Documented by: Potassium Chloride 20 meq/ (Premix) 100 mls @ 50 mls/hr IV ONETIME ONE Stop: 08/17/19 12:11 Last Admin: 08/17/19 10:46 Dose: 50 mls/hr Documented by: Pantoprazole Sodium (Protonix Iv) 40 mg IVPUSH ONETIME ONE Stop: 08/17/19 09:18 Last Admin: 08/17/19 09:43 Dose: 40 mg Documented by: - Exam General: Alert, Oriented Lungs: Clear to Auscultation, Normal Respiratory Effort Cardiovascular: Regular Rate, Regular Rhythm GI/Abdominal Exam: Normal Bowel Sounds, Soft, Non-Tender Sepsis Event Note - Evaluation Sepsis Screening Result: No Definite Risk - Focused Exam Vital Signs: Vital Signs Temp Temp Pulse Resp BP Pulse Ox 08/18/19 03:00 84 20 109/66 97 08/17/19 23:00 98.1 F 98.1 F 94 20 111/59 L 99 08/17/19 20:55 98.2 F 108 H 20 121/75 99 Date Exam was Performed: 08/18/19 Time Exam was Performed: 08:51 Consult PN Assessment/Plan Procedures: Procedures APPLY FOREARM SPLINT (11/01/14) COMPLETE CBC W/AUTO DIFF WBC (10/27/12) EMERGENCY DEPT VISIT (11/01/14) EMERGENCY DEPT VISIT (10/27/12) METABOLIC PANEL TOTAL CA (10/27/12) ROUTINE VENIPUNCTURE (10/27/12) THER/PROPH/DIAG INJ IV PUSH (10/27/12) X-RAY EXAM COMPLETE ABDOMEN (10/27/12) X-RAY EXAM OF WRIST (11/01/14) XCAPSL CTRC RMVL W/O ECP (12/04/12) (1) Hypokalemia SNOMED Code(s): 66915209 Code(s): E87.6 - HYPOKALEMIA Current Visit: Yes (2) BRBPR (bright red blood per rectum) SNOMED Code(s): 07362261 Code(s): K62.5 - HEMORRHAGE OF ANUS AND RECTUM Current Visit: Yes (3) History of diverticulosis SNOMED Code(s): 401965738 Code(s): Z87.19 - PERSONAL HISTORY OF OTHER DISEASES OF THE DIGESTIVE SYSTEM Current Visit: Yes Problem List Initiated/Reviewed/Updated: Yes My Orders Last 24 Hours: My Active Orders 08/17/19 10:15 D5 1/2 NS w/ 20 mEq/L KCl 1,000 ml IV ASDIRECTED 08/18/19 08:45 FRESH FROZEN PLASMA [BBK] Routine Sodium Chloride 0.9% [Normal Saline] 250 ml IV ASDIRECTED Transfuse Fresh Frozen Plasma [COMM] Routine 08/18/19 08:48 polyethylene glycoL 3350 [MiraLAX] 238 gm PO ONETIME ONE 08/18/19 08:49 Verify Patient Consent Obtain [RC] ASDIRECTED 08/18/19 Lunch Clear Liquid Diet [DIET] NPO After Midnight [Nothing per Oral After Midnight Diet] [DIET] Plan: will transfuse some ffp today. c scope in am. bowel prep clear liquid diet.
--- NOTE | 2019-08-18 09:25 | PCM.PN ---
- General Info Date of Service: 08/18/19 Subjective Update: Had a large bloody stool yesterday. Functional Status: Reports: Pain Controlled - Review of Systems HEENT: Reports: No Symptoms Pulmonary: Reports: No Symptoms Cardiovascular: Reports: No Symptoms Gastrointestinal: Reports: Hematochezia. Denies: Abdominal Pain Genitourinary: Reports: No Symptoms Musculoskeletal: Reports: No Symptoms - Patient Data Vitals - Most Recent: Last Vital Signs Temp 98.1 F 08/17/19 23:00 Pulse 84 08/18/19 03:00 Resp 20 08/18/19 03:00 BP 109/66 08/18/19 03:00 Pulse Ox 97 08/18/19 03:00 Orthostatic Blood Pressure [ 82/68 Sitting] Orthostatic Blood Pressure [ 122/108 Supine] Weight - Most Recent: 75.886 kg I&O - Last 24 Hours: Intake & Output 08/17/19 08/18/19 08/18/19 22:59 06:59 14:59 Intake Total 0 919 Output Total 1200 200 Balance -1200 719 Lab Results Last 24 Hours: Laboratory Results - last 24 hr 08/16/19 08/17/19 08/17/19 Range/Units 13:30 12:10 12:10 WBC 8.4 (4.5-12.0) X10-3/uL RBC 3.07 L (3.23-5.20) x10(6)uL Hgb 9.4 L (11.5-15.5) g/dL Hct 29.1 L (30.0-51.3) % MCV 94.9 (80-96) fL MCH 30.7 (27.7-33.6) pg MCHC 32.3 (32.2-35.4) g/dL RDW 16.6 H (11.5-15.5) % Plt Count 135 (125-369) X10(3)uL MPV 7.5 (7.4-10.4) fL Neut % (Auto) 69.2 (46-82) % Lymph % (Auto) 22.6 (13-37) % Dyer % (Auto) 7.3 (4-12) % Eos % (Auto) 0 L (1.0-5.0) % Baso % (Auto) 1 (0-2) % Neut # (Auto) 5.8 (1.6-8.3) # Lymph # (Auto) 1.9 (0.6-5.0) # Dyer # (Auto) 0.6 (0.0-1.3) # Eos # (Auto) 0.0 (0.0-0.8) # Baso # (Auto) 0.1 (0.0-0.2) # PT 13.7 H (9.0-11.1) sec INR 1.29 H (1.00-1.24) Sodium (135-145) mmol/L Potassium (3.5-5.3) mmol/L Chloride (100-110) mmol/L Carbon Dioxide (21-32) mmol/L BUN (7-18) mg/dL Creatinine (0.55-1.02) mg/dL Est Cr Clr Drug Dosing mL/min Estimated GFR (MDRD) (>60) BUN/Creatinine Ratio (9-20) Glucose (80-116) mg/dL Calcium (8.6-10.2) mg/dL Urine Color (YELLOW) Urine Appearance (CLEAR) Urine pH (5.0-6.5) Ur Specific Sawyer (1.010-1.025) Urine Protein (NEGATIVE) mg/dL Urine Glucose (UA) (NORMAL) mg/dL Urine Ketones (NEGATIVE) mg/dL Urine Occult Blood (NEGATIVE) Urine Nitrite (NEGATIVE) Urine Bilirubin (NEGATIVE) Urine Urobilinogen (NEGATIVE) mg/dL Ur Leukocyte Esterase (NEGATIVE) Urine RBC (0-5) Urine WBC (0-5) Ur Squamous Epith Cells (NS,R,O) Urine Bacteria (NS) Blood Type A POSITIVE Gel Antibody Screen Negative Crossmatch See Detail 08/17/19 08/18/19 08/18/19 Range/Units 17:25 06:15 06:15 WBC 8.3 (4.5-12.0) X10-3/uL RBC 3.02 L (3.23-5.20) x10(6)uL Hgb 9.2 L (11.5-15.5) g/dL Hct 28.3 L (30.0-51.3) % MCV 93.9 (80-96) fL MCH 30.4 (27.7-33.6) pg MCHC 32.4 (32.2-35.4) g/dL RDW 15.2 (11.5-15.5) % Plt Count 124 L (125-369) X10(3)uL MPV 7.5 (7.4-10.4) fL Neut % (Auto) 71.6 (46-82) % Lymph % (Auto) 19.5 (13-37) % Dyer % (Auto) 8.0 (4-12) % Eos % (Auto) 1 (1.0-5.0) % Baso % (Auto) 0 (0-2) % Neut # (Auto) 6.0 (1.6-8.3) # Lymph # (Auto) 1.6 (0.6-5.0) # Dyer # (Auto) 0.7 (0.0-1.3) # Eos # (Auto) 0.0 (0.0-0.8) # Baso # (Auto) 0.0 (0.0-0.2) # PT (9.0-11.1) sec INR (1.00-1.24) Sodium 139 (135-145) mmol/L Potassium 3.8 (3.5-5.3) mmol/L Chloride 107 (100-110) mmol/L Carbon Dioxide 24 (21-32) mmol/L BUN 21 H (7-18) mg/dL Creatinine 0.9 (0.55-1.02) mg/dL Est Cr Clr Drug Dosing 37.31 mL/min Estimated GFR (MDRD) 59 L (>60) BUN/Creatinine Ratio 23.3 H (9-20) Glucose 162 H (80-116) mg/dL Calcium 7.3 L (8.6-10.2) mg/dL Urine Color Yellow (YELLOW) Urine Appearance Cloudy (CLEAR) Urine pH 7.0 H (5.0-6.5) Ur Specific Sawyer 1.005 L (1.010-1.025) Urine Protein 30 H (NEGATIVE) mg/dL Urine Glucose (UA) Normal (NORMAL) mg/dL Urine Ketones Negative (NEGATIVE) mg/dL Urine Occult Blood Large H (NEGATIVE) Urine Nitrite Negative (NEGATIVE) Urine Bilirubin Negative (NEGATIVE) Urine Urobilinogen Normal (NEGATIVE) mg/dL Ur Leukocyte Esterase Large H (NEGATIVE) Urine RBC >100 H (0-5) Urine WBC >100 H (0-5) Ur Squamous Epith Cells Few H (NS,R,O) Urine Bacteria Many H (NS) Blood Type Gel Antibody Screen Crossmatch Med Orders - Current: Current Medications Donepezil HCl (Aricept) 10 mg PO BEDTIME [facility] Last Admin: 08/17/19 20:48 Dose: 10 mg Documented by: Sodium Chloride (Normal Saline) 250 mls @ 100 mls/hr IV ASDIRECTED [facility] Last Admin: 08/17/19 20:38 Dose: 100 mls/hr Documented by: Potassium Chloride/Dextrose/Sod Cl (D5 1/2 Ns W/ 20 Meq/L Kcl) 1,000 mls @ 125 mls/hr IV ASDIRECTED [facility] Last Admin: 08/18/19 09:14 Dose: 125 mls/hr Documented by: Levofloxacin/Dextrose 500 mg/ (Premix) 100 mls @ 100 mls/hr IV Q24H [facility] Last Admin: 08/17/19 18:07 Dose: 100 mls/hr Documented by: Sodium Chloride (Normal Saline) 250 mls @ 100 mls/hr IV ASDIRECTED [facility] Sodium Chloride (Saline Flush) 10 ml FLUSH ASDIRECTED PRN PRN Reason: Keep Vein Open Last Admin: 08/17/19 20:38 Dose: 10 ml Documented by: Discontinued Medications Diltiazem HCl (Cardizem) 120 mg PO ONETIME ONE Stop: 08/17/19 19:24 Last Admin: 08/17/19 20:48 Dose: Not Given Documented by: Diltiazem HCl (Cardizem) 120 mg PO ONETIME ONE Stop: 08/17/19 20:31 Last Admin: 08/17/19 20:49 Dose: 120 mg Documented by: Sodium Chloride (Normal Saline) 1,000 mls @ 125 mls/hr IV ASDIRECTED [facility] Last Admin: 08/17/19 09:45 Dose: 125 mls/hr Documented by: Sodium Chloride (Normal Saline) 500 mls @ 999 mls/hr IV .BOLUS ONE Stop: 08/16/19 14:20 Last Admin: 08/16/19 13:50 Dose: 999 mls/hr Documented by: Potassium Chloride 20 meq/ (Premix) 100 mls @ 50 mls/hr IV ONETIME ONE Stop: 08/17/19 12:11 Last Admin: 08/17/19 10:46 Dose: 50 mls/hr Documented by: Pantoprazole Sodium (Protonix Iv) 40 mg IVPUSH ONETIME ONE Stop: 08/17/19 09:18 Last Admin: 08/17/19 09:43 Dose: 40 mg Documented by: Polyethylene Glycol (Miralax) 238 gm PO ONETIME ONE Stop: 08/18/19 08:49 Last Admin: 08/18/19 09:20 Dose: 1 packet Documented by: - Exam General: Alert, Oriented Neck: Supple Lungs: Clear to Auscultation Cardiovascular: Regular Rate Skin: Warm Neurological: No New Focal Deficit Sepsis Event Note - Evaluation Sepsis Screening Result: No Definite Risk - Focused Exam Vital Signs: Vital Signs Temp Temp Pulse Resp BP Pulse Ox 08/18/19 03:00 84 20 109/66 97 08/17/19 23:00 98.1 F 98.1 F 94 20 111/59 L 99 Date Exam was Performed: 08/18/19 Time Exam was Performed: 09:23 - Problem List & Annotations (1) BRBPR (bright red blood per rectum) SNOMED Code(s): 60841285 Code(s): K62.5 - HEMORRHAGE OF ANUS AND RECTUM Status: Acute Current Visit: Yes (2) Pre-syncope SNOMED Code(s): 477745258 Code(s): R55 - SYNCOPE AND COLLAPSE Status: Acute Current Visit: Yes (3) Dizzy SNOMED Code(s): 188384950, 969141722 Code(s): R42 - DIZZINESS AND GIDDINESS Status: Acute Current Visit: Yes (4) Anemia SNOMED Code(s): 369901718 Code(s): D64.9 - ANEMIA, UNSPECIFIED Status: Acute Current Visit: Yes (5) Afib SNOMED Code(s): 10920745 Code(s): I48.91 - UNSPECIFIED ATRIAL FIBRILLATION Status: Acute Current Visit: Yes Qualifiers: Atrial fibrillation type: paroxysmal Qualified Code(s): I48.0 - Paroxysmal atrial fibrillation (6) Diarrhea SNOMED Code(s): 48107585 Code(s): R19.7 - DIARRHEA, UNSPECIFIED Status: Acute Current Visit: Yes (7) UTI (urinary tract infection) SNOMED Code(s): 49371364 Code(s): N39.0 - URINARY TRACT INFECTION, SITE NOT SPECIFIED Status: Acute Current Visit: Yes Qualifiers: Urinary tract infection type: acute cystitis - Problem List Review Problem List Initiated/Reviewed/Updated: Yes - My Orders Last 24 Hours: My Active Orders 08/17/19 17:25 CULTURE URINE [RM] Routine 08/17/19 18:00 Levofloxacin/Dextrose 5%-Water [Levaquin in D5W 500 MG/100 ML] 500 mg Premix Bag 1 bag IV Q24H 08/17/19 19:30 Transfuse PRBC [Transfuse Red Blood Cells] [COMM] Stat 08/17/19 21:00 Donepezil [Aricept] 10 mg PO BEDTIME 08/18/19 Breakfast Clear Liquid Diet [DIET] - Plan Plan:: Dr Matias is following. I appreciate his help.Levaquin for UTI
[2019-08-18] MEDS: Sodium Chloride 0.9% 250 ML IV SCH (14:20)
[2019-08-18] MEDS: Sodium Chloride 0.9% 10 ML Syringe FLUSH PRN (16:15)
[2019-08-18] MEDS ORDERED: Levofloxacin/Dextrose 5%-Water 250 MG in Premix Bag 1 BAG IV SCH (18:00)
[2019-08-18] MEDS: Donepezil 10 MG Tab PO SCH (20:40)
[2019-08-19] MEDS: Sodium Chloride 0.9% 10 ML Syringe FLUSH PRN (02:30)
[2019-08-19] MEDS: D5 1/2 NS w/ 20 mEq/L KCl 1,000 ML IV SCH (03:16)
--- NOTE | 2019-08-19 08:37 | PCM.PN ---
- General Info Date of Service: 08/19/19 Subjective Update: Slept well. Her pulse is noted to be [id number] Functional Status: Reports: Pain Controlled - Review of Systems HEENT: Reports: No Symptoms Pulmonary: Reports: No Symptoms Cardiovascular: Reports: No Symptoms Gastrointestinal: Denies: Abdominal Pain - Patient Data Vitals - Most Recent: Last Vital Signs Temp 98.3 F 08/19/19 06:30 Pulse 104 H 08/19/19 06:30 Resp 20 08/19/19 06:30 BP 131/79 08/19/19 06:30 Pulse Ox 98 08/19/19 06:30 Orthostatic Blood Pressure [ 82/68 Sitting] Orthostatic Blood Pressure [ 122/108 Supine] Weight - Most Recent: 78.245 kg I&O - Last 24 Hours: Intake & Output 08/18/19 08/19/19 08/19/19 22:59 06:59 14:59 Intake Total 1425 934 Output Total 1400 950 200 Balance 25 -16 -200 Lab Results Last 24 Hours: Laboratory Results - last 24 hr 08/16/19 Range/Units 13:30 Blood Type A POSITIVE Gel Antibody Screen Negative Crossmatch See Detail Johnnie Results Last 24 Hours: Microbiology 08/17/19 17:25 Urine Culture - Preliminary Urine, Bladder Gram Negative Rods Med Orders - Current: Current Medications Diltiazem HCl (Cardizem Cd) 180 mg PO DAILY [facility] Donepezil HCl (Aricept) 10 mg PO BEDTIME [facility] Last Admin: 08/18/19 20:40 Dose: 10 mg Documented by: Sodium Chloride (Normal Saline) 250 mls @ 100 mls/hr IV ASDIRECTED [facility] Last Admin: 08/18/19 14:20 Dose: 100 mls/hr Documented by: Potassium Chloride/Dextrose/Sod Cl (D5 1/2 Ns W/ 20 Meq/L Kcl) 1,000 mls @ 125 mls/hr IV ASDIRECTED [facility] Last Admin: 08/19/19 03:16 Dose: 125 mls/hr Documented by: Sodium Chloride (Normal Saline) 250 mls @ 100 mls/hr IV ASDIRECTED [facility] Last Admin: 08/18/19 16:52 Dose: 100 mls/hr Documented by: Levofloxacin/Dextrose 250 mg/ (Premix) 50 mls @ 50 mls/hr IV Q24H [facility] Last Admin: 08/18/19 17:44 Dose: 50 mls/hr Documented by: Sodium Chloride (Saline Flush) 10 ml FLUSH ASDIRECTED PRN PRN Reason: Keep Vein Open Last Admin: 08/19/19 02:30 Dose: 10 ml Documented by: Discontinued Medications Diltiazem HCl (Cardizem) 120 mg PO ONETIME ONE Stop: 08/17/19 19:24 Last Admin: 08/17/19 20:48 Dose: Not Given Documented by: Diltiazem HCl (Cardizem) 120 mg PO ONETIME ONE Stop: 08/17/19 20:31 Last Admin: 08/17/19 20:49 Dose: 120 mg Documented by: Sodium Chloride (Normal Saline) 1,000 mls @ 125 mls/hr IV ASDIRECTED [facility] Last Admin: 08/17/19 09:45 Dose: 125 mls/hr Documented by: Sodium Chloride (Normal Saline) 500 mls @ 999 mls/hr IV .BOLUS ONE Stop: 08/16/19 14:20 Last Admin: 08/16/19 13:50 Dose: 999 mls/hr Documented by: Potassium Chloride 20 meq/ (Premix) 100 mls @ 50 mls/hr IV ONETIME ONE Stop: 08/17/19 12:11 Last Admin: 08/17/19 10:46 Dose: 50 mls/hr Documented by: Levofloxacin/Dextrose 500 mg/ (Premix) 100 mls @ 100 mls/hr IV Q24H [facility] Last Admin: 08/17/19 18:07 Dose: 100 mls/hr Documented by: Pantoprazole Sodium (Protonix Iv) 40 mg IVPUSH ONETIME ONE Stop: 08/17/19 09:18 Last Admin: 08/17/19 09:43 Dose: 40 mg Documented by: Polyethylene Glycol (Miralax) 238 gm PO ONETIME ONE Stop: 08/18/19 08:49 Last Admin: 08/18/19 09:20 Dose: 1 packet Documented by: - Exam General: Alert, Oriented, Cooperative Neck: Supple Lungs: Clear to Auscultation Cardiovascular: Irregular Rhythm, Tachycardia Back Exam: Normal Inspection Sepsis Event Note - Evaluation Sepsis Screening Result: No Definite Risk - Focused Exam Vital Signs: Vital Signs Temp Pulse Resp BP Pulse Ox 08/19/19 06:30 98.3 F 104 H 20 131/79 98 08/19/19 00:30 97.9 F 100 20 109/71 99 Date Exam was Performed: 08/19/19 Time Exam was Performed: 08:36 - Problem List & Annotations (1) BRBPR (bright red blood per rectum) SNOMED Code(s): 42755639 Code(s): K62.5 - HEMORRHAGE OF ANUS AND RECTUM Status: Acute Current Visit: Yes (2) Pre-syncope SNOMED Code(s): 122344977 Code(s): R55 - SYNCOPE AND COLLAPSE Status: Acute Current Visit: Yes (3) Dizzy SNOMED Code(s): 718273722, 443729566 Code(s): R42 - DIZZINESS AND GIDDINESS Status: Acute Current Visit: Yes (4) Anemia SNOMED Code(s): 366289296 Code(s): D64.9 - ANEMIA, UNSPECIFIED Status: Acute Current Visit: Yes (5) Afib SNOMED Code(s): 45084010 Code(s): I48.91 - UNSPECIFIED ATRIAL FIBRILLATION Status: Acute Current Visit: Yes Qualifiers: Atrial fibrillation type: paroxysmal Qualified Code(s): I48.0 - Paroxysmal atrial fibrillation (6) Diarrhea SNOMED Code(s): 49334664 Code(s): R19.7 - DIARRHEA, UNSPECIFIED Status: Acute Current Visit: Yes (7) UTI (urinary tract infection) SNOMED Code(s): 54421837 Code(s): N39.0 - URINARY TRACT INFECTION, SITE NOT SPECIFIED Status: Acute Current Visit: Yes Qualifiers: Urinary tract infection type: acute cystitis - Problem List Review Problem List Initiated/Reviewed/Updated: Yes - My Orders Last 24 Hours: My Active Orders 08/18/19 18:00 Levofloxacin/Dextrose 5%-Water [Levaquin in D5W 250 MG/50 ML] 250 mg Premix Bag 1 bag IV Q24H 08/19/19 09:00 Diltiazem [Cardizem CD] 180 mg PO DAILY 08/20/19 05:11 CBC WITH AUTO DIFF [HEME] AM COMPREHENSIVE METABOLIC PN,CMP [CHEM] AM - Plan Plan:: Dr Matias is following. I appreciate his help.Levaquin for UTI.Restart Cardizem and PPI.
[2019-08-19] MEDS ORDERED: Pantoprazole 40 MG Vial IVPUSH SCH (09:00)
[2019-08-19] MEDS ORDERED: Diltiazem 180 MG Cap.CD PO SCH (09:00)
[2019-08-19 09:39] VITALS: PULSE 120
--- NOTE | 2019-08-19 11:03 | PCM.OPNOTE ---
- General Post-Op/Procedure Note Date of Surgery/Procedure: 08/19/19 Operative Procedure(s): flex sig Findings: active bleeding. poor prep Pre Op Diagnosis: rectal bleeding Post-Op Diagnosis: Same Anesthesia Technique: MAC Primary Surgeon: Bran Matias Anesthesia Provider: Bandar Sam Pathology: appears to be still actively bleeding recommending transfer to [place] Complications: None Condition: Good Free Text/Narrative:: Intake & Output 08/18/19 08/19/19 08/19/19 22:59 06:59 14:59 Intake Total 1425 934 Output Total 1400 950 200 Balance 25 -16 -200
[2019-08-19] MEDS ORDERED: Propofol 200 MG/20 ML SDV IV ONE (11:44)
[2019-08-19 15:40] VITALS: BP 115/69
--- NOTE | 2019-08-20 14:17 | OR ---
DATE OF OPERATION: 08/19/2019 SURGEON: Bran Matias MD PROCEDURE PERFORMED: Flexible sigmoidoscopy. PREOPERATIVE DIAGNOSIS: Bleeding per rectum. POSTOPERATIVE DIAGNOSIS: Bleeding per rectum. INDICATIONS FOR PROCEDURE: This is an 88-year-old white female, who was admitted over the weekend. She has had episodes of intermittent blood per rectum. She was given a bowel prep yesterday, as well as FFP, and then was offered a colonoscopy today to see if we could delineate the etiology of her bleeding. She does have a history of diverticulosis in the past. DESCRIPTION OF OPERATION: After an excellent IV sedation was administered, digital rectal exam was performed. Active blood was noted as well as clot. Flexible colonoscope was inserted and advanced to approximately 30 cm with erickson blood noted throughout, as well as what appeared to be fresh blood. This was not amenable to irrigation, given her current system. The procedure was then terminated with recommendations that the patient be transferred to [place] for a more definitive workup, possibly bleeding scan as needed. Dr. Shaikh was notified and we did discuss the case later with the on-call GI doctor. /[id number] /MODL
--- NOTE | 2019-08-20 14:17 | DISCH ---
DISCHARGE DATE: 08/19/2019 REASON FOR ADMISSION: 1. Syncope. 2. Atrial fibrillation. 3. Lower GI bleed. 4. Anemia of blood loss. DISCHARGE DIAGNOSES: 1. Syncope. 2. Atrial fibrillation. 3. Lower gastrointestinal bleed. 4. Anemia of blood loss. CONSULTATION: Bran Matias MD PROCEDURE: Colonoscopy attempt on 08/18. BRIEF HISTORY: This is an 88-year-old female admitted after passing out at home. She has had one more episode in the hospital along with bright red blood per rectum. Had received 3 units of PRBCs and 1 unit of FFP, but continued bleeding. Dr. Matias attempted a colonoscopy, was not able to see anything. Transfer was suggested, and I sent them to [place] for further management. I spent more than 35 to 45 minutes in the transfer. /[id number] MARIA T/HEBER
== END 2019-08-19 11:45 | DRG 378 ==
LOC: FB.ED 13:21 → FB.MS 16:21
PROVIDERS: ADMIT Family Medicine; ATTEND Family Medicine
PROC: 30233N1 Transfusion of Nonautologous Red Blood Cells into Peripheral Vein, Percutaneous Approach (ICD-10-PCS; principal; 2019-08-16)
PROC: 30233K1 Transfusion of Nonautologous Frozen Plasma into Peripheral Vein, Percutaneous Approach (ICD-10-PCS; 2019-08-16)
PROC: 0DJD8ZZ Inspection of Lower Intestinal Tract, Via Natural or Artificial Opening Endoscopic (ICD-10-PCS; 2019-08-19)
DX: R55 Syncope and collapse (principal); R42 Dizziness and giddiness; D64.9 Anemia, unspecified; K92.2 Gastrointestinal hemorrhage, unspecified; R19.7 Diarrhea, unspecified; N30.00 Acute cystitis without hematuria; D50.0 Iron deficiency anemia secondary to blood loss (chronic); I48.0 Paroxysmal atrial fibrillation; Z20.828 Contact with and (suspected) exposure to other viral communicable diseases; I10 Essential (primary) hypertension; Z79.01 Long term (current) use of anticoagulants; E87.6 Hypokalemia; R32 Unspecified urinary incontinence; M19.90 Unspecified osteoarthritis, unspecified site; F03.90 Unspecified dementia, unspecified severity, without behavioral disturbance, psychotic disturbance, mood disturbance, and anxiety; Z96.659 Presence of unspecified artificial knee joint; E66.9 Obesity, unspecified; Z90.89 Acquired absence of other organs; W18.2XXA Fall in (into) shower or empty bathtub, initial encounter; Z96.651 Presence of right artificial knee joint; Z98.41 Cataract extraction status, right eye; Z79.82 Long term (current) use of aspirin; Z98.42 Cataract extraction status, left eye; Z90.710 Acquired absence of both cervix and uterus; Z88.5 Allergy status to narcotic agent; Z87.440 Personal history of urinary (tract) infections; Z79.899 Other long term (current) drug therapy; Z88.6 Allergy status to analgesic agent; Z87.19 Personal history of other diseases of the digestive system; Z68.29 Body mass index [BMI] 29.0-29.9, adult
CPT/HCPCS: 36415; 36430; 80048; 80053; 81001; 82272; 84484; 85025; 85610; 86850; 86900; 86901; 86920; 86922; 87086; 87088; 87186; 93005; 93010; 96360; 99283; 99285-25; A9270-GY; C9113; J1956; J2704; J3480; J7030; J7050; P9016; P9017; U0002